=== PATIENT | female | born 1990 | race Caucasian/White ===

== ENCOUNTER 2018-03-09 12:31 | Emergency (ER) | payer OTHER ==
[~2018-03-09] VITALS: Ht 167.6 cm; Wt 100.2 kg
--- NOTE | ~2018-03-09 | EKG ---
[place] [address] [facility] [place] [address] ELECTROCARDIOGRAM REPORT Name: MORE GONSALEZ Room #: [facility] M.R.#: [id number] Admission: Attend Phys: Discharge: Date of : 86 Report #: [id number] THIS REPORT FOR: //name// [facility] ED Test Date: 2018-03-09 Test Time: 12:44:11 Pat Name: MORE GONSALEZ Department: Room: Gender: F [place] Singer: COSTA : 1990 Requested By: Remi Tinoco Order Number: [id number] MD: Hai Ribera Measurements Intervals [place] Rate: 59 P: -35 AR: 115 QRS: 5 QRSD: 81 T: 5 QT: 414 QTc: 411 Interpretive Statements Sinus bradycardia Borderline short AR interval Early R-wave progression No previous ECG available for comparison Electronically Signed On 03-09-2018 12:55:33 CDT by Hai Ribera [email or web address] <ELECTRONICALLY SIGNED> By: Hai Ribera MD, [facility] 03/09/18 1255 1244 1244 Hai Ribera MD, FACC /EPI
[2018-03-09 13:08] LABS: ABSOLUTE NEUTROPHILS 6.1 thou/uL (1.4-8.2); BASOPHILS 0.7 % (0.0-2.0); EOSINOPHILS 1.5 % (0.0-3.0); HEMATOCRIT 42.3 % (37.0-47.0); HEMOGLOBIN 14.3 gm/dL (12.0-15.0); MCH 28.3 pg (26.0-34.0); MCHC 33.7 g/dL (28.0-37.0); MONOCYTES 5.3 % (1.0-8.0); PLATELET COUNT 191 thou/uL (150-400); POLYS 71.5 % (36.0-66.0); RBC 5.04 mil/uL (4.20-5.00); RDW 13.3 % (10.5-14.5); WBC 8.5 thou/uL (4.0-11.0)
[2018-03-09 13:16] LABS: ANION GAP 7 mmol/L (7-16); BUN 13 mg/dL (7-18); CALCIUM 9.1 mg/dL (8.5-10.1); CHLORIDE 103 mmol/L (98-107); CO2 27 mmol/L (21-32); CREATININE 0.9 mg/dL (0.6-1.0); GLUCOSE 102 mg/dL (74-106); POTASSIUM 3.7 mmol/L (3.5-5.1); SODIUM 137 mmol/L (136-145)
[2018-03-09 13:25] LABS: TROPONIN-I < 0.04 ng/mL (<0.06)
[2018-03-09 13:45] LABS: URINE BILIRUBIN NEGATIVE (Negative); URINE BLOOD 1+ (Negative); URINE CLARITY CLEAR; URINE COLOR YELLOW; URINE GLUCOSE-RANDOM* NEGATIVE (Negative); URINE KETONES NEGATIVE (Negative); URINE NITRITE-REFLEX NEGATIVE (Negative); URINE PROTEIN (DIPSTICK) NEGATIVE (Negative); URINE UROBILINOGEN 0.2 E.U./dl (0.2-1.0)
[2018-03-09 13:53] LABS: URINE LEUKOCYTES-REFLEX TRACE (Negative)
[2018-03-09 13:55] LABS: BACTERIA-REFLEX 1-9 Few /HPF (None Seen); CASTS None Seen /LPF (None Seen); CRYSTALS None Seen /LPF (None Seen); SQUAMOUS >10 Many /LPF (0-3); URINE RBC None Seen /HPF (0-2); URINE WBC-REFLEX 0-5 Rare /HPF (0-5)
[2018-03-09 15:00] VITALS: BP 116/63
== END 2018-03-09 15:01 | disposition home or self-care (01) ==
LOC: ER 12:31
PROVIDERS: Physician Assistant
DX: R55 Syncope and collapse (principal); J45.909 Unspecified asthma, uncomplicated; Z88.5 Allergy status to narcotic agent